=== PATIENT | female | born 1955 ===

== ENCOUNTER → 2023-06-08 | Outpatient (CLI) | payer MEDICARE | LOC: LAB SHORT 16:00 → LAB 16:00 | DX: L08.9 Local infection of the skin and subcutaneous tissue, unspecified (principal) | CPT/HCPCS: 87070; 87075; 87205 ==

== ENCOUNTER 2024-11-02 21:50 | Emergency (ER) | payer OTHER ==
[~2024-11-02] VITALS: Ht 167.6 cm; Wt 87.5 kg
[2024-11-02 21:55] VITALS: BP 135/95
== END 2024-11-03 00:25 | disposition home or self-care (01) ==
LOC: ER 21:50
DX: M79.672 Pain in left foot (principal); Z91.041 Radiographic dye allergy status
CPT/HCPCS: 73630; 99283-25

== ENCOUNTER 2025-01-24 07:49 | Day surgery (SDC) | payer OTHER ==
[~2025-01-24] VITALS: Ht 167.6 cm; Wt 82.0 kg
[2025-01-24] MEDS ORDERED: ATORVALIQ20 MG/5 ML (08:02)
[2025-01-24] MEDS ORDERED: METOPROLOL SUCC25 MG (08:02)
[2025-01-24] MEDS ORDERED: METFORMIN HCL500 M3 (08:03)
[2025-01-24] MEDS ORDERED: ZANAFLEX413 (08:03)
[2025-01-24] MEDS ORDERED: EZETIMIBE10 M6 (08:03)
[2025-01-24] MEDS ORDERED: LEVOTHYROXINE112 M18 (08:03)
[2025-01-24] MEDS ORDERED: ATOR10 (08:03)
[2025-01-24 10:01] VITALS: BP 115/70
== END 2025-01-24 09:45 | disposition home or self-care (01) ==
LOC: ORSCSDS 07:49
PROVIDERS: Internal Medicine Gastroenterology
PROC: 0DBM8ZX Excision of Descending Colon, Via Natural or Artificial Opening Endoscopic, Diagnostic (ICD-10-PCS; principal; 2025-01-24 09:30)
PROC: 0DBL8ZX Excision of Transverse Colon, Via Natural or Artificial Opening Endoscopic, Diagnostic (ICD-10-PCS; principal; 2025-01-24 09:30)
DX: R10.30 Lower abdominal pain, unspecified (principal); K59.00 Constipation, unspecified; D12.3 Benign neoplasm of transverse colon; K63.5 Polyp of colon; K21.9 Gastro-esophageal reflux disease without esophagitis; E11.9 Type 2 diabetes mellitus without complications; E78.5 Hyperlipidemia, unspecified; I48.91 Unspecified atrial fibrillation; Z80.0 Family history of malignant neoplasm of digestive organs; E03.9 Hypothyroidism, unspecified; F17.210 Nicotine dependence, cigarettes, uncomplicated; Z79.84 Long term (current) use of oral hypoglycemic drugs; Z79.899 Other long term (current) drug therapy
CPT/HCPCS: 82947; 88305; J2704